=== PATIENT | male | born 1945 | race Caucasian/White ===

== ENCOUNTER → 2017-02-04 | Outpatient (CLI) | payer MEDICARE ==
--- NOTE | 2017-02-04 14:13 | REP ---
LUMBAR SPINE, FIVE VIEWS: HISTORY: Pain. There is no acute fracture or subluxation. The L2-3 through L5-S1 intervertebral discs are decreased in height consistent with disc degeneration. Osteophytes are present throughout the lumbar spine. There is narrowing of the L5-S1 facet joints. IMPRESSION: Degenerative change as described above. Signed by Jimi Ram MD 02/04/2017 02:18 P
== END ==
LOC: M WUC 13:37
PROVIDERS: ATTEND Physician Assistant
DX: M54.5 Low back pain (principal)